=== PATIENT | female | born 1980 | race Caucasian/White ===

== ENCOUNTER 2017-03-13 16:39 | Emergency (ER) | payer OTHER ==
--- NOTE | 2017-03-13 19:10 | ED CLINICAL REPORT ---
Clinical Report - Physicians/Mid Levels [facility] [address] [place] [place] [address] 03/13/2017 16:41 Patient: JAJA BARFIELD Time Seen: 16:53 Mar 13 2017. Arrived- By private vehicle. Historian- patient. CPT: ER phys charges level 4 plus (#[id number]). EKG interpretation (#[id number]). HISTORY OF PRESENT ILLNESS Chief Complaint: ( Pt states she had blood drawn on Sunday. Today the MD office called and pt was anemic and told to come to the ER.). ABNORMAL H & H. She was instructed by their PCP to come to the ED for evaluation. ( Told to come to ER for HGB of 7 found on blood draw 4 days ago.). This started today and is still present. At its maximum, severity described as moderate. When seen in the E.D., severity described as moderate. The patient has had fatigue (chronically). Similar symptoms previously: None. Recent medical care: The patient was seen recently at another facility in the office (4 days ago). Seen for similar symptoms. Evaluation/treatment: labs. ( [facility] REVIEW OF SYSTEMS No fever, sore throat, cough, difficulty breathing or chest pain. No abdominal pain, nausea, vomiting, diarrhea or black stools. No bloody stools, chills, difficulty with urination, abnormal bleeding or skin rash. No calf pain, headache, blackouts or double vision. The patient has had back pain (chronically). No difficulty with ambulation. Menses is 8 pads over 6 days. All systems otherwise negative, except as recorded above. PAST HISTORY . DJD. Problems: no known problems. Medications: Vicodin Oral. Allergies: None. SOCIAL HISTORY Never smoker. No alcohol use or drug use. ADDITIONAL NOTES The nursing notes have been reviewed. PHYSICAL EXAM Vital Signs: 03/13/2017 16:49 BP: 118/66. HR: 69. RR: 18. O2 saturation: 100%. Temp: 97.6 F. Pain level now: 3/10. Appearance: Alert. No acute distress. Anxious. Eyes: Pupils equal, round and reactive to light. Eyes normal inspection. ENT: Pharynx normal. Neck: Normal inspection. CVS: Normal heart rate and rhythm. Heart sounds normal. Pulses normal. Respiratory: No respiratory distress. Breath sounds normal. Abdomen: No visible injury. Soft and nontender. Back: Normal inspection. Skin: Skin warm. Normal skin color. No rash. Extremities: Extremities exhibit normal ROM. No lower extremity edema. Neuro: Oriented X 3. No motor deficit. No sensory deficit. LABS, X-RAYS, AND EKG Chest X-ray: Normal Chest X-Ray. KUB: Normal abdominal study. Laboratory Tests: UA-Culture if indicated: (SIMA: 03/13/2017 18:30) ( Mscvd 03/13/2017 19:00) Final results Test Result Flag Units (Reference) URINE COLOR STRAW URINE APPEARANCE CLEAR URINE GLUCOSE NEGATIVE (NEGATIVE) URINE BILIRUBIN NEGATIVE (NEGATIVE) URINE KETONE NEGATIVE (NEGATIVE) URINE SPECIFIC GRAVITY <= 1.005 L (1.010-1.030) URINE PH 6.5 (5.0-8.0) URINE PROTEIN NEGATIVE (NEGATIVE) URINE UROBILINOGEN 0.2 EU/dL (0.2-1.0) URINE NITRITE NEGATIVE (NEGATIVE) URINE BLOOD NEGATIVE (NEGATIVE) URINE LEUK ESTERASE TRACE (NEGATIVE) URINE RBC NONE SEEN rbc/hpf (0-1) URINE WBC 1-3 wbc/hpf (0-1) URINE EPITHELIAL CELLS 1-3 EPI/hpf (0-5) URINE BACTERIA TRACE (<1+) (NONE SEEN) URINE COMMENT CULTURE INDICATED URINE CULTURES ARE SET-UP BASED ON THE FOLLOWING CRITERIA:POSITIVE NITRITEPOSITIVE LEUKOCYTE ESTERASEGREATER THAN 10 WHITE BLOOD CELLSMODERATE (2+) OR GREATER BACTERIA Urine: (SIMA: 03/13/2017 18:30) ( MsgRcvd 03/13/2017 18:47) Final results Test Result Flag Units (Reference) URINE NEGATIVE [id number]: (SIMA: 03/13/2017 17:58) ( MsgRcvd 03/14/2017 14:37) Final results Test Result Flag Units (Reference) RETIC # 0.0368 M/uL (0.02-0.08) RETIC % 0.9 % (0.5-1.5) CHANGE IN REPORTABLE RANGESValues reported are now absolute counts uncorrectedfor hematocrit. This change is effective 12/16/09. ESR: (SIMA: 03/13/2017 17:58) ( [facility] 03/13/2017 18:54) Final results Test Result Flag Units (Reference) SED RATE WESTERGREN 8 mm/hr (0-20) CBC w Diff: (SIMA: 03/13/2017 17:58) ( [facility] 03/13/2017 18:19) Final results Test Result Flag Units (Reference) WHITE BLOOD COUNT 7.8 K/uL (4.5-11.5) RED BLOOD COUNT 4.31 M/uL (4.00-5.20) HEMOGLOBIN 11.8 L gm/dL (12.0-16.0) HEMATOCRIT 35.7 L % (36.0-46.0) MEAN CELL VOLUME 83 fL (80-100) MEAN CORPUSCULAR HGB 27 pg (26-34) MEAN CORPUSCULAR HGB CONC 33 g/dL (31-37) RED CELL DISTRIBUTION WIDTH 13.4 % (11.6-14.8) PLATELET COUNT 197 K/uL (150-400) NEUTROPHIL % 53.9 % (50-75) LYMPH % 31.2 % (25-40) MONO % 11.8 % (3-14) EOSINOPHIL % 2.8 % (0-4) BASOPHIL % 0.3 % (0-2) PT with INR: (SIMA: 03/13/2017 18:30) ( [facility] 03/13/2017 19:12) Final results Test Result Flag Units (Reference) INR 1.0 (0.8-1.2) Low Intensity Therapy: INR 1.5-2.0 PT range 18.5-23.1Mod.Intensity Therapy: INR 2.0-3.0 PT range 23.1-31.5High Intensity Therapy: INR 2.5-3.5 PT range 27.4-35.5High Intensity Therapy 2: INR 3.0-4.0 PT range 31.5-39.3 APTT 33 SECONDS (24-34) Lipase: (SIMA: 03/13/2017 17:58) ( MsgRcvd 03/13/2017 18:42) Final results Test Result Flag Units (Reference) LIPASE 104 U/L (73-393) THYROID STIMULATING HORMONE 2.089 uIU/mL (0.34-3.74) C-REACTIVE PROTEIN 1.2 H mg/dL (0.0-0.9) CHEM 13 PANEL: (SIMA: 03/13/2017 17:58) ( MsgRcvd 03/13/2017 18:36) Final results Test Result Flag Units (Reference) GLUCOSE 97 mg/dL (70-110) BUN 9 mg/dL (7-18) CREATININE 0.6 mg/dL (0.6-1.3) Estimated GFR >60 mL/min Estimated GFR- >60 mL/min Note: Persistent reduction over 3 months in eGFR<60 mL/min/1.73 m2 defines CKD. Patients with eGFR values>=60 mL/min/1.73 m2 may also have CKD if evidence ofpersistent proteinuria. Additional information may be foundat www.kidney.org. SODIUM 145 mmol/L (136-145) POTASSIUM 5.0 mmol/L (3.5-5.1) CHLORIDE 109 H mmol/L (98-107) CARBON DIOXIDE 29 mmol/L (21-32) CALCIUM 9.3 mg/dL (8.5-10.1) TOTAL PROTEIN 7.8 g/dL (6.4-8.2) ALBUMIN 3.8 g/dL (3.3-5.0) BILIRUBIN, TOTAL 0.3 mg/dL (0.0-1.0) ALKALINE PHOSPHATASE 56 U/L (46-116) AST (SGOT) 16 U/L (15-37) ALT (SGPT) 23 U/L (12-78) MAGNESIUM 2.2 mg/dL (1.8-2.4) CPK 67 U/L (24-260) TROPONIN I <0.05 ng/mL (0.00-1.5) TROPONIN REFERENCE RANGE:<0.1 NEGATIVE0.1-1.5 INDETERMINANT>1.5 POSITIVE Culture, Urine: (SIMA: 03/13/2017 18:30) ( [facility] 03/14/2017 11:50) IP Test Result Flag Units (Reference) CULTURE, URINE DATE: 03/14/17 NO GROWTH AT:: NO GROWTH AT < 12 HOURS PRELIM REPORT: PRELIMINARY REPORT #1 Type & Screen: (SIMA: 03/13/2017 17:58) ( [facility] 03/13/2017 18:47) Final results Test Result Flag Units (Reference) PATIENT BLOOD TYPE A Positive Above is a corrected result. Previously reported on ( [facility] 03/13/2017 18:26) as: PATIENT BLOOD TYPE A Positive ANTIBODY SCREEN NEGATIVE . PROGRESS AND PROCEDURES Course of Care: blood results from our lab show a near normal hematocrit and hemoglobin. Called in result must have been a lab error. Discussed with the patient and her . They will follow-up with their PCP. Patient/family counseled. Disposition: Discharged. Condition: stable. CLINICAL IMPRESSION Follow up on abnormal blood test. Chronic fatigue. INSTRUCTIONS Warnings: Further evaluation is necessary. GENERAL WARNINGS: Return or contact your physician immediately if your condition worsens or changes unexpectedly, if not improving as expected, or if other problems arise. Follow-up: Follow up with your doctor in one week. Call for an appointment. Understanding of the discharge instructions verbalized by patient and family. Discharge instructions reviewed with and understanding was verbalized by spouse. (Electronically signed by Yaniv Wilson MD 03/14/2017 21:47)
--- NOTE | 2017-03-13 19:10 | ED ORDER SUMMARY ---
..... Patient: JAJA BARFIELD OrderSheet [facility] VisitID: [id number] [address] [place] [address] 36y, F Registration Date/Time: 03/13/2017 ORDER SHEET Weight: 73.9 kg (stated) Allergies: None GENERAL ORDERS: Chest 2V Urgent (17:26 03/13/2017 Geovanni CARRIZALES) (Ack 17:32 PWwashington ER Tech1) (18:56 JBoardley R.N.) Abdomen 1V Upright Urgent (17:27 03/13/2017 Geovanni CARRIZALES) (Ack 17:32 Roger BROWN Tech1) (18:56 JBoardley R.N.) - (retic count) (17:28 03/13/2017 Geovanni CARRIZALES) (Ack 17:32 Roger ER Tech1) (18:07 JBoardley R.N.) PT with INR Urgent (17:03/13/2017 Geovanni CARRIZALES) (Ack 17:32 Roger BROWN TechMendez) (18:07 JBoardley R.N.) PTT Urgent (17:28 03/13/2017 Geovanni CARRIZALES) (Ack 17:32 Roger BROWN TechMendez) (18:07 JBoardley R.N.) Cardiac Panel Stat (17:03/13/2017 Geovanni CARRIZALES) (Ack 17:32 Roger Edgar) (18:07 JBoardley R.N.) UA-Culture if indicated Urgent (17:28 03/13/2017 Geovanni CARRIZALES) (Ack 17:32 Roger BROWN TechMendez) (18:34 JBoardley R.N.) Lipase Urgent (17:03/13/2017 Geovanni CARRIZALES) (Ack 17:32 Roger BROWN Tech1) (18:07 JBoardley R.N.) Urine Urgent (17:03/13/2017 Geovanni CARRIZALES) (Ack 17:32 Roger BROWN TechMendez) (18:34 JBoardley R.N.) Type & Screen Urgent (17:03/13/2017 Geovanni CARRIZALES) (Ack 17:32 PWeiler ER Tech1) (18:07 JBoardley R.N.) TSH Urgent (17:28 03/13/2017 Geovanni CARRIZALES) (Ack 17:32 PWeiler ER Tech1) (18:07 JBoardley R.N.) ESR Urgent (17:28 03/13/2017 Geovanni CARRIZALES) (Ack 17:32 PWeiler ER Tech1) (18:07 JBoardley R.N.) CRP Urgent (17:28 03/13/2017 Geovanni CARRIZALES) (Ack 17:32 PWeiler ER Tech1) (18:07 JBoardley R.N.) MEDICATION ORDERS: IV FLUIDS: IV Saline Lock (17:28 03/13/2017 Geovanni CARRIZALES) (18:07 JBoardley R.N.) ORDER SHEET NOTES: [Electronically signed by Fabiano Tate R.N. (19:22 03/13/2017)] [Electronically signed by Yaniv Wilson MD (21:47 03/14/2017)] [Electronically locked/signed by Fabiano Tate R.N. (19:22 03/13/2017)]
--- NOTE | 2017-03-13 19:10 | ED NURSING NOTES ---
Clinical Report - Nurses [facility] [address] [place] [address] 03/13/2017 16:41 Patient: JAJA BARFIELD TRIAGE Triage time 16:48. Acuity: LEVEL 3. Chief Complaint: (WEAKNESS). 16:48 03/13/17. 16:48 03/13/17. Alert. No acute distress. ( Pt states she had blood drawn on Sunday. Today the MD office called and pt was anemic and told to come to the ER.). SEPSIS SCREEN: Sepsis Screen. Negative (no infection suspected/documented). ANTON COMA SCORE: Anton Coma Scale: 15- eyes open spontaneously (4); best verbal response- oriented x 4 (5); best motor response- obeys commands (6). --16:52 Fabiano Tate R.N. 16:49 03/13/17. BP: 118/66. HR: 69. RR: 18. O2 saturation: 100% on room air. Temp: 97.6 F (oral). Pain level now: 02/02. --16:52 Fabiano Tate R.N. Weight: 73.9 kg stated. Height/Length: 61 inches Per Patient. BMI: 30.8. --16:48 Fabiano Tate R.N. Medications Vicodin Oral. --16:51 Fabiano Tate R.N. Medication/allergy information source: the patient. --16:52 Fabiano Tate R.N. Allergies None. --16:51 Fabiano Tate R.N. History Arrived by private vehicle. Historian: patient. Accompanied by family. Primary physician (ABILIO COLLINS). 16:48 03/13/17. Treatment NECK CUTTER: None. PAST MEDICAL HX: Immunizations: up-to-date. Last normal menstrual period- 3 weeks ago. SOCIAL HX: Never smoker. No alcohol use or drug use. No infectious disease exposure. ABUSE ASSESSMENT: No report of abuse. FALL RISK ASSESSMENT: Fall risk assessment completed. No fall risk identified. NUTRITIONAL RISK ASSESSMENT: The nutritional risk assessment revealed no deficiencies. FUNCTIONAL ASSESSMENT: Functional assessment: no impairments noted. LEARNING NEEDS ASSESSMENT: The learning needs assessment revealed no barriers. SKIN INTEGRITY ASSESSMENT: Skin integrity risk assessment completed. No skin integrity risk identified. --16:52 Fabiano Tate R.N. PROBLEMS: no known problems. ADDITIONAL SURGERIES: . --16:52 Fabiano Tate R.N. Assessment 16:48 03/13/17. --16:52 Fabiano Tate R.N. Interventions 16:48 03/13/17. 16:48 03/13/17. ID and allergy band on patient. To treatment room. --16:52 Fabiano Tate R.N. PHYSICAL ASSESSMENT 16:50 03/13/17. Ambulatory to room. GENERAL / NEURO / PSYCH: Alert. Oriented X 4. RESPIRATORY: Respirations not labored. CVS: Capillary refill less than 2 seconds. SKIN: Skin is warm and dry. --16:50 Fabiano Tate R.N. NURSING PROGRESS NOTES 16:50 03/13/17. The plan of care for this patient has been created. Oxygen administered. lunchroom monitor, pulse oximeter and NIBP monitor placed on patient; monitor alarms on. Patient gowned. Head of bed elevated. Reassurance given. Call light placed in reach. Side rails up x 2. Bed placed in lowest position. Brakes of bed on. Brakes of chair on. Patient ready for evaluation- chart flagged. --16:50 Fabiano Tate R.N. 17:52 03/13/2017 Site #1 started via IV in the right wrist with an 20g angiocath, with aseptic technique and good blood return; one attempt. Blood drawn: rainbow set. Labeled in the presence of the patient and sent to the lab. Saline lock flushed with 10 mL saline. --18:07 Fabiano Tate R.N. 18:08 03/13/17. --18:08 Fabiano Tate R.N. 18:07 03/13/17. BP: 110/61. HR: 68. RR: 18. O2 saturation: 99%. Temp: 99.1 F (oral). --18:08 Fabiano Tate R.N. 18:11 03/13/17. ( Pt was screaming in pain during IV start. Very emotional. Reinforced to patient that patient will be fine and educated patient on how to relax during IV start. was at bedside during IV start, and had a vasovagal episode. Rapid response called, pt lifted on to [facility] by two nurses and brought to another room.). --18:11 Fabiano Tate R.N. 18:35 03/13/17. ( Pt feels better and back to room, redrew blue top coags as blue to was overfilled. Urine sent to lab.). --18:35 Fabiano Tate R.N. 18:35 03/13/17. Patient ID band checked for patient name and birthdate. Clean catch urine collected with return of yellow-colored urine; sample sent to lab for urinalysis, culture and HCG. Specimen labeled in the presence of the patient. --18:35 Fabiano Tate R.N. 18:35 03/13/17. Patient and family informed about reason for wait and about plan of care. --18:35 Fabiano Tate R.N. 18:42 03/13/17. ( While flushing IV, IV flushed well, good blood draw from, IV site is less painful when flushing. Pt is calmer. PA at beside performing rectal exam with computer game programmer.). --18:42 Fabiano Tate R.N. 18:45 03/13/17. ( Rectal exam completed). --18:45 Fabiano Tate R.N. ( assisted P.A. with rectal exam.). --18:47 Kaitlin Moreno ER Tech1. DISPOSITION / DISCHARGE 19:20 03/13/17. Condition at departure: improved. The goals identified in the patient's plan of care were met. No learning barriers present. Discharge instructions provided and reviewed with the patient and spouse. Reviewed warnings. Reviewed medication(s). Treatments reviewed. Patient and spouse verbalized understanding. Written instructions provided in [place]ankan. The patient was discharged by the physician. She was discharged home and accompanied by family. She left the Emergency Department ambulatory and via private vehicle. Family member driving. FALL RISK ASSESSMENT: Fall risk assessment completed. No fall risk identified. --19:20 Fabiano Tate R.N. 19:19 03/13/17. BP: 114/62. HR: 80. RR: 14. O2 saturation: 100% on room air. Temp: 98.2 F (oral). Pain level now: 12/05. --19:20 Fabiano Tate R.N. Departure time: 19:20. --19:21 Fabiano Tate R.N. Locked/Released at 03/13/2017 19:22 by Fabiano Tate R.N.
--- NOTE | 2017-03-13 19:10 | ED ORDER SUMMARY ---
..... Patient: JAJA BARFIELD OrderSheet [facility] VisitID: [id number] [address] [place] [address] 36y, F Registration Date/Time: 03/13/2017 ORDER SHEET Weight: 73.9 kg (stated) Allergies: None GENERAL ORDERS: Chest 2V Urgent (17:26 03/13/2017 Geovanni CARRIZALES) (Ack 17:32 PWwashington ER Tech1) (18:56 JBoardley R.N.) Abdomen 1V Upright Urgent (17:27 03/13/2017 Geovanni CARRIZALES) (Ack 17:32 Roger BROWN Tech1) (18:56 JBoardley R.N.) - (retic count) (17:28 03/13/2017 Geovanni CARRIZALES) (Ack 17:32 Roger ER Tech1) (18:07 JBoardley R.N.) PT with INR Urgent (17:03/13/2017 Geovanni CARRIZALES) (Ack 17:32 Roger BROWN TechMendez) (18:07 JBoardley R.N.) PTT Urgent (17:28 03/13/2017 Geovanni CARRIZALES) (Ack 17:32 Roger BROWN TechMendez) (18:07 JBoardley R.N.) Cardiac Panel Stat (17:03/13/2017 Geovanni CARRIZALES) (Ack 17:32 Roger Edgar) (18:07 JBoardley R.N.) UA-Culture if indicated Urgent (17:28 03/13/2017 Geovanni CARRIZALES) (Ack 17:32 Roger BROWN TechMendez) (18:34 JBoardley R.N.) Lipase Urgent (17:03/13/2017 Geovanni CARRIZALES) (Ack 17:32 Roger BROWN Tech1) (18:07 JBoardley R.N.) Urine Urgent (17:03/13/2017 Geovanni CARRIZALES) (Ack 17:32 Roger BROWN TechMendez) (18:34 JBoardley R.N.) Type & Screen Urgent (17:03/13/2017 Geovanni CARRIZALES) (Ack 17:32 PWeiler ER Tech1) (18:07 JBoardley R.N.) TSH Urgent (17:28 03/13/2017 Geovanni CARRIZALES) (Ack 17:32 PWeiler ER Tech1) (18:07 JBoardley R.N.) ESR Urgent (17:28 03/13/2017 Geovanni CARRIZALES) (Ack 17:32 PWeiler ER Tech1) (18:07 JBoardley R.N.) CRP Urgent (17:28 03/13/2017 Geovanni CARRIZALES) (Ack 17:32 PWeiler ER Tech1) (18:07 JBoardley R.N.) MEDICATION ORDERS: IV FLUIDS: IV Saline Lock (17:28 03/13/2017 Geovanni CARRIZALES) (18:07 JBoardley R.N.) ORDER SHEET NOTES: [Electronically signed by Fabiano Tate R.N. (19:22 03/13/2017)] [Electronically signed by Yaniv Wilson MD (21:47 03/14/2017)] [Electronically locked/signed by Fabiano Tate R.N. (19:22 03/13/2017)]
--- NOTE | 2017-03-13 19:10 | ED CLINICAL REPORT ---
Clinical Report - Physicians/Mid Levels [facility] [address] [place] [address] 03/13/2017 16:41 Patient: JAJA BARFIELD Time Seen: 16:53 Mar 13 2017. Arrived- By private vehicle. Historian- patient. CPT: ER phys charges level 4 plus (#[id number]). EKG interpretation (#[id number]). HISTORY OF PRESENT ILLNESS Chief Complaint: ( Pt states she had blood drawn on Sunday. Today the MD office called and pt was anemic and told to come to the ER.). ABNORMAL H & H. She was instructed by their PCP to come to the ED for evaluation. ( Told to come to ER for HGB of 7 found on blood draw 4 days ago.). This started today and is still present. At its maximum, severity described as moderate. When seen in the E.D., severity described as moderate. The patient has had fatigue (chronically). Similar symptoms previously: None. Recent medical care: The patient was seen recently at another facility in the office (4 days ago). Seen for similar symptoms. Evaluation/treatment: labs. ( [facility] [place] REVIEW OF SYSTEMS No fever, sore throat, cough, difficulty breathing or chest pain. No abdominal pain, nausea, vomiting, diarrhea or black stools. No bloody stools, chills, difficulty with urination, abnormal bleeding or skin rash. No calf pain, headache, blackouts or double vision. The patient has had back pain (chronically). No difficulty with ambulation. Menses is 8 pads over 6 days. All systems otherwise negative, except as recorded above. PAST HISTORY . DJD. Problems: no known problems. Medications: Vicodin Oral. Allergies: None. SOCIAL HISTORY Never smoker. No alcohol use or drug use. ADDITIONAL NOTES The nursing notes have been reviewed. PHYSICAL EXAM Vital Signs: 03/13/2017 16:49 BP: 118/66. HR: 69. RR: 18. O2 saturation: 100%. Temp: 97.6 F. Pain level now: 3/10. Appearance: Alert. No acute distress. Anxious. Eyes: Pupils equal, round and reactive to light. Eyes normal inspection. ENT: Pharynx normal. Neck: Normal inspection. CVS: Normal heart rate and rhythm. Heart sounds normal. Pulses normal. Respiratory: No respiratory distress. Breath sounds normal. Abdomen: No visible injury. Soft and nontender. Back: Normal inspection. Skin: Skin warm. Normal skin color. No rash. Extremities: Extremities exhibit normal ROM. No lower extremity edema. Neuro: Oriented X 3. No motor deficit. No sensory deficit. LABS, X-RAYS, AND EKG Chest X-ray: Normal Chest X-Ray. KUB: Normal abdominal study. Laboratory Tests: UA-Culture if indicated: (SIMA: 03/13/2017 18:30) ( Mscvd 03/13/2017 19:00) Final results Test Result Flag Units (Reference) URINE COLOR STRAW URINE APPEARANCE CLEAR URINE GLUCOSE NEGATIVE (NEGATIVE) URINE BILIRUBIN NEGATIVE (NEGATIVE) URINE KETONE NEGATIVE (NEGATIVE) URINE SPECIFIC GRAVITY <= 1.005 L (1.010-1.030) URINE PH 6.5 (5.0-8.0) URINE PROTEIN NEGATIVE (NEGATIVE) URINE UROBILINOGEN 0.2 EU/dL (0.2-1.0) URINE NITRITE NEGATIVE (NEGATIVE) URINE BLOOD NEGATIVE (NEGATIVE) URINE LEUK ESTERASE TRACE (NEGATIVE) URINE RBC NONE SEEN rbc/hpf (0-1) URINE WBC 1-3 wbc/hpf (0-1) URINE EPITHELIAL CELLS 1-3 EPI/hpf (0-5) URINE BACTERIA TRACE (<1+) (NONE SEEN) URINE COMMENT CULTURE INDICATED URINE CULTURES ARE SET-UP BASED ON THE FOLLOWING CRITERIA:POSITIVE NITRITEPOSITIVE LEUKOCYTE ESTERASEGREATER THAN 10 WHITE BLOOD CELLSMODERATE (2+) OR GREATER BACTERIA Urine: (SIMA: 03/13/2017 18:30) ( MsgRcvd 03/13/2017 18:47) Final results Test Result Flag Units (Reference) URINE NEGATIVE [id number]: (SIMA: 03/13/2017 17:58) ( MsgRcvd 03/14/2017 14:37) Final results Test Result Flag Units (Reference) RETIC # 0.0368 M/uL (0.02-0.08) RETIC % 0.9 % (0.5-1.5) CHANGE IN REPORTABLE RANGESValues reported are now absolute counts uncorrectedfor hematocrit. This change is effective 12/16/09. ESR: (SIMA: 03/13/2017 17:58) ( [facility] 03/13/2017 18:54) Final results Test Result Flag Units (Reference) SED RATE WESTERGREN 8 mm/hr (0-20) CBC w Diff: (SIMA: 03/13/2017 17:58) ( [facility] 03/13/2017 18:19) Final results Test Result Flag Units (Reference) WHITE BLOOD COUNT 7.8 K/uL (4.5-11.5) RED BLOOD COUNT 4.31 M/uL (4.00-5.20) HEMOGLOBIN 11.8 L gm/dL (12.0-16.0) HEMATOCRIT 35.7 L % (36.0-46.0) MEAN CELL VOLUME 83 fL (80-100) MEAN CORPUSCULAR HGB 27 pg (26-34) MEAN CORPUSCULAR HGB CONC 33 g/dL (31-37) RED CELL DISTRIBUTION WIDTH 13.4 % (11.6-14.8) PLATELET COUNT 197 K/uL (150-400) NEUTROPHIL % 53.9 % (50-75) LYMPH % 31.2 % (25-40) MONO % 11.8 % (3-14) EOSINOPHIL % 2.8 % (0-4) BASOPHIL % 0.3 % (0-2) PT with INR: (SIMA: 03/13/2017 18:30) ( [facility] 03/13/2017 19:12) Final results Test Result Flag Units (Reference) INR 1.0 (0.8-1.2) Low Intensity Therapy: INR 1.5-2.0 PT range 18.5-23.1Mod.Intensity Therapy: INR 2.0-3.0 PT range 23.1-31.5High Intensity Therapy: INR 2.5-3.5 PT range 27.4-35.5High Intensity Therapy 2: INR 3.0-4.0 PT range 31.5-39.3 APTT 33 SECONDS (24-34) Lipase: (SIMA: 03/13/2017 17:58) ( MsgRcvd 03/13/2017 18:42) Final results Test Result Flag Units (Reference) LIPASE 104 U/L (73-393) THYROID STIMULATING HORMONE 2.089 uIU/mL (0.34-3.74) C-REACTIVE PROTEIN 1.2 H mg/dL (0.0-0.9) CHEM 13 PANEL: (SIMA: 03/13/2017 17:58) ( MsgRcvd 03/13/2017 18:36) Final results Test Result Flag Units (Reference) GLUCOSE 97 mg/dL (70-110) BUN 9 mg/dL (7-18) CREATININE 0.6 mg/dL (0.6-1.3) Estimated GFR >60 mL/min Estimated GFR- >60 mL/min Note: Persistent reduction over 3 months in eGFR<60 mL/min/1.73 m2 defines CKD. Patients with eGFR values>=60 mL/min/1.73 m2 may also have CKD if evidence ofpersistent proteinuria. Additional information may be foundat www.kidney.org. SODIUM 145 mmol/L (136-145) POTASSIUM 5.0 mmol/L (3.5-5.1) CHLORIDE 109 H mmol/L (98-107) CARBON DIOXIDE 29 mmol/L (21-32) CALCIUM 9.3 mg/dL (8.5-10.1) TOTAL PROTEIN 7.8 g/dL (6.4-8.2) ALBUMIN 3.8 g/dL (3.3-5.0) BILIRUBIN, TOTAL 0.3 mg/dL (0.0-1.0) ALKALINE PHOSPHATASE 56 U/L (46-116) AST (SGOT) 16 U/L (15-37) ALT (SGPT) 23 U/L (12-78) MAGNESIUM 2.2 mg/dL (1.8-2.4) CPK 67 U/L (24-260) TROPONIN I <0.05 ng/mL (0.00-1.5) TROPONIN REFERENCE RANGE:<0.1 NEGATIVE0.1-1.5 INDETERMINANT>1.5 POSITIVE Culture, Urine: (SIMA: 03/13/2017 18:30) ( [facility] 03/14/2017 11:50) IP Test Result Flag Units (Reference) CULTURE, URINE DATE: 03/14/17 NO GROWTH AT:: NO GROWTH AT < 12 HOURS PRELIM REPORT: PRELIMINARY REPORT #1 Type & Screen: (SIMA: 03/13/2017 17:58) ( [facility] 03/13/2017 18:47) Final results Test Result Flag Units (Reference) PATIENT BLOOD TYPE A Positive Above is a corrected result. Previously reported on ( [facility] 03/13/2017 18:26) as: PATIENT BLOOD TYPE A Positive ANTIBODY SCREEN NEGATIVE . PROGRESS AND PROCEDURES Course of Care: blood results from our lab show a near normal hematocrit and hemoglobin. Called in result must have been a lab error. Discussed with the patient and her . They will follow-up with their PCP. Patient/family counseled. Disposition: Discharged. Condition: stable. CLINICAL IMPRESSION Follow up on abnormal blood test. Chronic fatigue. INSTRUCTIONS Warnings: Further evaluation is necessary. GENERAL WARNINGS: Return or contact your physician immediately if your condition worsens or changes unexpectedly, if not improving as expected, or if other problems arise. Follow-up: Follow up with your doctor in one week. Call for an appointment. Understanding of the discharge instructions verbalized by patient and family. Discharge instructions reviewed with and understanding was verbalized by spouse. (Electronically signed by Yaniv Wilson MD 03/14/2017 21:47)
--- NOTE | 2017-03-13 19:10 | ED NURSING NOTES ---
Clinical Report - Nurses [facility] [address] [place] [address] 03/13/2017 16:41 Patient: JAJA BARFIELD TRIAGE Triage time 16:48. Acuity: LEVEL 3. Chief Complaint: (WEAKNESS). 16:48 03/13/17. 16:48 03/13/17. Alert. No acute distress. ( Pt states she had blood drawn on Sunday. Today the MD office called and pt was anemic and told to come to the ER.). SEPSIS SCREEN: Sepsis Screen. Negative (no infection suspected/documented). ANTON COMA SCORE: Anton Coma Scale: 15- eyes open spontaneously (4); best verbal response- oriented x 4 (5); best motor response- obeys commands (6). --16:52 Fabiano Tate R.N. 16:49 03/13/17. BP: 118/66. HR: 69. RR: 18. O2 saturation: 100% on room air. Temp: 97.6 F (oral). Pain level now: 02/02. --16:52 Fabiano Tate R.N. Weight: 73.9 kg stated. Height/Length: 61 inches Per Patient. BMI: 30.8. --16:48 Fabiano Tate R.N. Medications Vicodin Oral. --16:51 Fabiano Tate R.N. Medication/allergy information source: the patient. --16:52 Fabiano Tate R.N. Allergies None. --16:51 Fabiano Tate R.N. History Arrived by private vehicle. Historian: patient. Accompanied by family. Primary physician (ABILIO COLLINS). 16:48 03/13/17. Treatment PLAN EXAMINER: None. PAST MEDICAL HX: Immunizations: up-to-date. Last normal menstrual period- 3 weeks ago. SOCIAL HX: Never smoker. No alcohol use or drug use. No infectious disease exposure. ABUSE ASSESSMENT: No report of abuse. FALL RISK ASSESSMENT: Fall risk assessment completed. No fall risk identified. NUTRITIONAL RISK ASSESSMENT: The nutritional risk assessment revealed no deficiencies. FUNCTIONAL ASSESSMENT: Functional assessment: no impairments noted. LEARNING NEEDS ASSESSMENT: The learning needs assessment revealed no barriers. SKIN INTEGRITY ASSESSMENT: Skin integrity risk assessment completed. No skin integrity risk identified. --16:52 Fabiano Tate R.N. PROBLEMS: no known problems. ADDITIONAL SURGERIES: . --16:52 Fabiano Tate R.N. Assessment 16:48 03/13/17. --16:52 Fabiano Tate R.N. Interventions 16:48 03/13/17. 16:48 03/13/17. ID and allergy band on patient. To treatment room. --16:52 Fabiano Tate R.N. PHYSICAL ASSESSMENT 16:50 03/13/17. Ambulatory to room. GENERAL / NEURO / PSYCH: Alert. Oriented X 4. RESPIRATORY: Respirations not labored. CVS: Capillary refill less than 2 seconds. SKIN: Skin is warm and dry. --16:50 Fabiano Tate R.N. NURSING PROGRESS NOTES 16:50 03/13/17. The plan of care for this patient has been created. Oxygen administered. in store marketer, pulse oximeter and NIBP monitor placed on patient; monitor alarms on. Patient gowned. Head of bed elevated. Reassurance given. Call light placed in reach. Side rails up x 2. Bed placed in lowest position. Brakes of bed on. Brakes of chair on. Patient ready for evaluation- chart flagged. --16:50 Fabiano Tate R.N. 17:52 03/13/2017 Site #1 started via IV in the right wrist with an 20g angiocath, with aseptic technique and good blood return; one attempt. Blood drawn: rainbow set. Labeled in the presence of the patient and sent to the lab. Saline lock flushed with 10 mL saline. --18:07 Fabiano Tate R.N. 18:08 03/13/17. --18:08 Fabiano Tate R.N. 18:07 03/13/17. BP: 110/61. HR: 68. RR: 18. O2 saturation: 99%. Temp: 99.1 F (oral). --18:08 Fabiano Tate R.N. 18:11 03/13/17. ( Pt was screaming in pain during IV start. Very emotional. Reinforced to patient that patient will be fine and educated patient on how to relax during IV start. was at bedside during IV start, and had a vasovagal episode. Rapid response called, pt lifted on to [facility] by two nurses and brought to another room.). --18:11 Fabiano Tate R.N. 18:35 03/13/17. ( Pt feels better and back to room, redrew blue top coags as blue to was overfilled. Urine sent to lab.). --18:35 Fabiano Tate R.N. 18:35 03/13/17. Patient ID band checked for patient name and birthdate. Clean catch urine collected with return of yellow-colored urine; sample sent to lab for urinalysis, culture and HCG. Specimen labeled in the presence of the patient. --18:35 Fabiano Tate R.N. 18:35 03/13/17. Patient and family informed about reason for wait and about plan of care. --18:35 Fabiano Tate R.N. 18:42 03/13/17. ( While flushing IV, IV flushed well, good blood draw from, IV site is less painful when flushing. Pt is calmer. PA at beside performing rectal exam with front desk administrator.). --18:42 Fabiano Tate R.N. 18:45 03/13/17. ( Rectal exam completed). --18:45 Fabiano Tate R.N. ( assisted P.A. with rectal exam.). --18:47 Kaitlin Moreno ER Tech1. DISPOSITION / DISCHARGE 19:20 03/13/17. Condition at departure: improved. The goals identified in the patient's plan of care were met. No learning barriers present. Discharge instructions provided and reviewed with the patient and spouse. Reviewed warnings. Reviewed medication(s). Treatments reviewed. Patient and spouse verbalized understanding. Written instructions provided in Trinidadian. The patient was discharged by the physician. She was discharged home and accompanied by family. She left the Emergency Department ambulatory and via private vehicle. Family member driving. FALL RISK ASSESSMENT: Fall risk assessment completed. No fall risk identified. --19:20 Fabiano Tate R.N. 19:19 03/13/17. BP: 114/62. HR: 80. RR: 14. O2 saturation: 100% on room air. Temp: 98.2 F (oral). Pain level now: 12/05. --19:20 Fabiano Tate R.N. Departure time: 19:20. --19:21 Fabiano Tate R.N. Locked/Released at 03/13/2017 19:22 by Fabiano Tate R.N.
--- NOTE | 2017-03-13 21:45 | DIAGNOSTIC IMAGING REPORT ---
PROCEDURE: XR CHEST 2 VIEW INDICATION: WEAK HX OF HEART VALVE PROBLEM TECHNIQUE: Two views. COMPARISON: None. FINDINGS: The heart size and central vasculature are within normal limits. Left cardiac border morphology suspicious for pulmonic stenosis. The lungs are clear without focal consolidation, pleural effusion, or pneumothorax. The visualized osseous structures are intact. IMPRESSION: 1. No acute process. 2. Cardiac morphology suspicious for pulmonic stenosis. Correlate clinically.
--- NOTE | 2017-03-13 21:47 | DIAGNOSTIC IMAGING REPORT ---
PROCEDURE: XR ABDOMEN 1 VIEW UPRIGHT INDICATION: ABDOMINAL DISTENTION TECHNIQUE: Single view upright abdomen. COMPARISON: None. FINDINGS: No free intraperitoneal air. Nonspecific, nonobstructive bowel gas pattern. Mildly increased amount of stool in the colon. No suspicious mass, mass effect, or calcifications. The visible osseous structures are intact. IMPRESSION: 1. Mildly increased amount of retained stool. 2. Otherwise normal.
--- NOTE | 2017-03-14 21:47 | ED MAR SUMMARY ---
..... Medication Administration Record [facility] [address] [place], [place] [id number] Patient: JAJA BARFIELD Visit ID: [id number] 36y, F Weight: 73.9 kg Height/Length: 61 in BMI: 30.8 ALLERGIES: None
--- NOTE | 2017-03-14 21:47 | ED DISCHARGE INSTRUCTIONS ---
Patient: JAJA BARFIELD General Instructions [facility] VisitID: [id number] [address] [place] [address] 36y, F Registration Date/Time: 03/13/2017 Follow up on abnormal blood test. Chronic fatigue. INSTRUCTIONS Warnings: Further evaluation is necessary. GENERAL WARNINGS: Return or contact your physician immediately if your condition worsens or changes unexpectedly, if not improving as expected, or if other problems arise. Follow-up: Follow up with your doctor in one week. Call for an appointment. Understanding of the discharge instructions verbalized by patient and family. Discharge instructions reviewed with and understanding was verbalized by spouse. (Electronically signed by Yaniv Wilson MD 03/14/2017 21:47)
--- NOTE | 2017-03-14 21:47 | ED MED RECONCILIATION SUMMARY ---
Patient: JAJA BARFIELD Medication Reconciliation Report [facility] VisitID: [id number] [address] [place] [address] 36y, F Registration Date/Time: 03/13/2017 Weight: 73.9 kg Height/Length: 61 in. BMI: 30.8 ALLERGIES: None The patient's Home Medications are listed below: THE FOLLOWING MEDICATIONS NEED TO BE RECONCILED: Vicodin Oral The source(s) of the original Home Medication information: patient The following Medications were given to the patient in the Emergency Department: None. The following Medications were prescribed to the patient: None.
--- NOTE | 2017-03-14 21:47 | ED DISCHARGE INSTRUCTIONS ---
Patient: JAJA BARFIELD General Instructions [facility] VisitID: [id number] [address] [place] [address] 36y, F Registration Date/Time: 03/13/2017 Follow up on abnormal blood test. Chronic fatigue. INSTRUCTIONS Warnings: Further evaluation is necessary. GENERAL WARNINGS: Return or contact your physician immediately if your condition worsens or changes unexpectedly, if not improving as expected, or if other problems arise. Follow-up: Follow up with your doctor in one week. Call for an appointment. Understanding of the discharge instructions verbalized by patient and family. Discharge instructions reviewed with and understanding was verbalized by spouse. (Electronically signed by Yaniv Wilson MD 03/14/2017 21:47)
--- NOTE | 2017-03-14 21:47 | ED MED RECONCILIATION SUMMARY ---
Patient: JAJA BARFIELD Medication Reconciliation Report [facility] VisitID: [id number] [address] [place] [address] 36y, F Registration Date/Time: 03/13/2017 Weight: 73.9 kg Height/Length: 61 in. BMI: 30.8 ALLERGIES: None The patient's Home Medications are listed below: THE FOLLOWING MEDICATIONS NEED TO BE RECONCILED: Vicodin Oral The source(s) of the original Home Medication information: patient The following Medications were given to the patient in the Emergency Department: None. The following Medications were prescribed to the patient: None.
--- NOTE | 2017-03-14 21:47 | ED MAR SUMMARY ---
..... Medication Administration Record [facility] [address] [place], [place] [id number] Patient: JAJA BARFIELD Visit ID: [id number] 36y, F Weight: 73.9 kg Height/Length: 61 in BMI: 30.8 ALLERGIES: None
== END 2017-03-13 19:20 | disposition home or self-care (01) ==
LOC: ED SRH 16:39
DX: D58.2 Other hemoglobinopathies (principal); R53.82 Chronic fatigue, unspecified
CPT/HCPCS: 90001; 90004; 90100; 90155; 90469; 90616; 91004; 91585; 92235; 92610; 92720; 93070; 93140; 94001; 94060; 95059; 95140; 95150